=== PATIENT | male | born 1955 | race Caucasian/White ===

== ENCOUNTER 2019-09-22 10:06 | Outpatient (CLI) | payer MEDICARE, SELFPAY ==
--- NOTE | ~2019-09-22 | XR_ITS ---
XR chest 2V 09/22/2019 10:22 Indication: Hypercalcemia. Procedure: 2 view chest Comparison: Comparison to multiple prior studies sequentially, with oldest reviewed study dated 04/27. Findings: There is chronic bibasilar atelectasis/scarring. Heart size normal. The lungs are hyperinfl ated which is consistent with, but not diagnostic of chronic obstructive pulmonary disease. No acute focal pneumonia, edema or effusion. No pneumothorax. Impression: 1: Chronic bibasilar atelectasis/scarring. Reviewed, dictated and finalized at location A. Impression: 1: Chronic bibasilar atelectasis/scarring.
== END 2019-09-22 10:07 | disposition home or self-care (01) ==
LOC: ANHIMG 10:10
PROVIDERS: PCP Family Medicine; Visit Provider Physician Assistant
DX: E83.52 Hypercalcemia (principal); J98.11 Atelectasis
CPT/HCPCS: 71046

== ENCOUNTER → 2020-08-13 01:13 | Outpatient (CLI) | payer MEDICARE, SELFPAY ==
[2020-08-13 19:12] LABS: SARS-CoV-2 RNA PCR Negative
== END ==
PROVIDERS: PCP Family Medicine; Visit Provider Internal Medicine Gastroenterology
DX: Z01.812 Encounter for preprocedural laboratory examination (principal); Z20.828 Contact with and (suspected) exposure to other viral communicable diseases
CPT/HCPCS: C9803; U0003; U0005

== ENCOUNTER 2020-08-17 03:02 | Day surgery (SDC) | payer MEDICARE, SELFPAY ==
[2020-08-03 16:03] VITALS: BMI 26.3
[2020-08-17 11:49] VITALS: BP 129/93; PULSE 83; RESP 18; TEMP 36.6; O2SAT 97
[2020-08-17] MEDS: LACTATED RINGERS 1,000 ML 150 ML IV CONT (12:03)
--- NOTE | 2020-08-17 12:59 | WPDANESEPPF ---
Anes - Initial Pre Proc Eval Procedure: Operation Date: 08/17/20 13:00 Proposed Procedures p Screening Colonoscopy - Jermain Saunders MD Date/Time: 08/17/20 12:59 Surgeon: Jermain Saunders MD Pre Op Diagnosis: neoplasm screening Patient Data Age: 65 Gender: M Height: 6 ft 2 in Weight: 90.4 kg Last Vital Signs Temp 97.8 F 08/17/20 11:49 Pulse 83 08/17/20 11:49 Resp 18 08/17/20 11:49 BP 129/93 H 08/17/20 11:49 Pulse Ox 97 08/17/20 11:49 Allergies Allergy/AdvReac Type Severity Reaction Status Date / Time ampicillin Allergy Severe Hives Verified 08/17/20 11:46 latex Allergy Severe Swelling Verified 08/17/20 11:46 AMOXICILLIN TRIHYDRATE Allergy Severe HIVES Uncoded 08/17/20 11:46 POTASSIUM CLAVULANATE Allergy Severe HIVES Uncoded 08/17/20 11:46 Home Medications Medication Instructions Recorded Confirmed Type aspirin 81 mg tablet,delayed 81 mg PO DAILY 05/15/19 08/03/20 History release levothyroxine 125 mcg tablet 125 mcg PO DAILY #90 tablet 11/13/19 08/03/20 Rx flecainide 100 mg tablet 100 mg PO Q12H #360 tablet 02/08/20 08/03/20 Rx atorvastatin 10 mg tablet 10 mg PO DAILY #90 tablet 05/09/20 08/03/20 Rx gabapentin 100 mg capsule 700 mg PO DAILY #630 cap 06/06/20 08/03/20 Rx melatonin 10 mg PO .qhs PRN 08/03/20 08/03/20 History Patient hx anesthesia problems: none Family hx anesthesia problems: none PMFSH Past Medical History Medical History (Updated 06/01/20 @ 11:57 by VITA Hopkins) Encounter for wellness examination History of pulmonary embolism Shingles Surgical History Surgical History (Updated 06/15/19 @ 14:55 by Shaan Swift MD) History of partial thyroidectomy Intracranial meningioma S/P IVC filter Family History Family History (Updated 12/23/15 @ 23:19 by DOCTOR UNKNOWN) Father Family history of coronary artery disease Mother Family history of malignant neoplasm of breast in first degree relative Sibling Family history of malignant neoplasm of breast in first degree relative Other Family history of cardiovascular disease Family history of malignant neoplasm Social History Social History (Updated 06/20/20 @ 13:09 by Danette Woodard) Smoking status: Never smoker Second hand tobacco smoke exposure: No Alcohol intake: never Substance use: never Substance use type: does not use Living arrangements: with family Gender identity (if verbalized by the patient): Male Spiritual care concerns: No Anes - Eval Final PreProcedure Day of Procedure 08/17/20 12:59 Patient weight: normal Heart: regular rate and rhythm Lungs: clear to auscultation Airway: Mallampati scale class II Neurological: alert and oriented Last oral intake: >/= 8 hours ASA classification: III Emergent: no Anesthetic plan: proceed Anesthesia type and monitoring: general GIVS and standard monitoring Informed Consent: The patient's anesthetic plan and its attendant risks and benefits were discussed with the patient/family/POA. Questions were solicited and answers provided to the satisfaction of the patient/family/POA.
--- NOTE | 2020-08-17 13:02 | PM.HPGS ---
History of Present Illness History of Present Illness Consent: Risks, benefits, and alternatives have been discussed and questions answered. Patient agrees to proceed with procedure. Chief complaint: neoplasm screening Narrative: Jhony James is a 65 year old male with colon polyps 2016 Review of Systems Constitutional: Constitutional: Denies headache(s) and Denies weakness Eyes: Eyes: Denies blurry vision ENT: Reports Normal hearing present, Denies headache(s) and Denies neck pain Cardiovascular: Cardiovascular: Denies chest pain and Denies dyspnea Respiratory: Respiratory: Denies dyspnea Gastrointestinal: Gastrointestinal: Reports no additional gastrointestinal complaints Genitourinary: Genitourinary: Denies dysuria Musculoskeletal: Musculoskeletal: Denies neck pain Integumentary/Breasts: Skin/Breast: Denies dry skin Neurologic: Reports Normal hearing present, Denies headache(s) and Denies weakness Psychiatric: Psychiatric: Denies anxiety Endocrine: Endocrine: Denies change in body appearance Hematologic/Lymphatic: Hematologic/Lymphatic: Denies easy bleeding Allergic/Immunologic: Allergic/Immunologic: Denies urticaria PMF Past Medical History Medical History (Updated 08/17/20 @ 13:02 by Jermain Saunders MD) Adenomatous colon polyp Encounter for wellness examination History of pulmonary embolism Shingles Surgical History Surgical History (Updated 06/15/19 @ 14:55 by Shaan Swift MD) History of partial thyroidectomy Intracranial meningioma S/P IVC filter Family History Family History (Updated 12/23/15 @ 23:19 by DOCTOR UNKNOWN) Father Family history of coronary artery disease Mother Family history of malignant neoplasm of breast in first degree relative Sibling Family history of malignant neoplasm of breast in first degree relative Other Family history of cardiovascular disease Family history of malignant neoplasm Social History Social History (Updated 06/20/20 @ 13:09 by Danette Woodard) Smoking status: Never smoker Second hand tobacco smoke exposure: No Alcohol intake: never Substance use: never Substance use type: does not use Living arrangements: with family Gender identity (if verbalized by the patient): Male Spiritual care concerns: No Meds Home Medications and Allergies Home Medications Medication Instructions Recorded Confirmed Type aspirin 81 mg tablet,delayed 81 mg PO DAILY 05/15/19 08/03/20 History release levothyroxine 125 mcg tablet 125 mcg PO DAILY #90 tablet 11/13/19 08/03/20 Rx flecainide 100 mg tablet 100 mg PO Q12H #360 tablet 02/08/20 08/03/20 Rx atorvastatin 10 mg tablet 10 mg PO DAILY #90 tablet 05/09/20 08/03/20 Rx gabapentin 100 mg capsule 700 mg PO DAILY #630 cap 06/06/20 08/03/20 Rx melatonin 10 mg PO .qhs PRN 08/03/20 08/03/20 History Allergies Allergy/AdvReac Type Severity Reaction Status Date / Time ampicillin Allergy Severe Hives Verified 08/17/20 11:46 latex Allergy Severe Swelling Verified 08/17/20 11:46 AMOXICILLIN TRIHYDRATE Allergy Severe HIVES Uncoded 08/17/20 11:46 POTASSIUM CLAVULANATE Allergy Severe HIVES Uncoded 08/17/20 11:46 Vital Signs Vital Signs - 24 hr 08/17/20 11:49 Temperature 97.8 F Pulse Rate 83 Respiratory Rate 18 Blood Pressure 129/93 H Pulse Oximetry 97 Exam Const: General: comfortable and no acute distress HENMT: General nose exam: Normal nares present Eyes: General: appearance normal, both eyes and all related structures Neck: Neck: no JVD Resp: Auscultation: clear to auscultation bilaterally Cardio: Rate: regular rate Rhythm: regular rhythm GI: Inspection: non-distended GI Palp: Yes Soft to palpation Skin: General skin exam: normal color Neuro: General: gait normal Speech: normal speech Extrem: General: normal to inspection Psych: Mental Status: mental status grossly normal Assessment and Plan Assessment and plan (1) Bessy
[2020-08-17 13:34] VITALS: BP 107/72; PULSE 77; RESP 15; O2SAT 97
[2020-08-17 13:44] VITALS: BP 105/71; PULSE 74; RESP 17; O2SAT 98
[2020-08-17 13:54] VITALS: BP 108/68; PULSE 72; RESP 18; O2SAT 97
== END 2020-08-17 14:08 | disposition home or self-care (01) ==
PROVIDERS: PCP Family Medicine; Visit Provider Internal Medicine Gastroenterology
PROC: 0DJD8ZZ Inspection of Lower Intestinal Tract, Via Natural or Artificial Opening Endoscopic (ICD-10-PCS; CPT 45378; principal; 2020-08-17 13:00)
DX: Z12.11 Encounter for screening for malignant neoplasm of colon (principal); D12.3 Benign neoplasm of transverse colon; K64.8 Other hemorrhoids; Z86.711 Personal history of pulmonary embolism; Z79.82 Long term (current) use of aspirin
CPT/HCPCS: 45385; 88305; C9803; J2001; J2704; J7120; U0003; U0005

== ENCOUNTER 2020-10-31 07:33 | Outpatient (CLI) | payer MEDICARE, SELFPAY ==
--- NOTE | ~2020-10-31 | US_ITS ---
EXAMINATION: US venous doppler LE EXAM DATE: 10/31/2020 08:00 INDICATION: Z86.711 - Personal history of pulmonary embolism. Calf pain 2 weeks ago. TECHNIQUE: Multiple grayscale, color flow and Doppler images of the lower extremity deep venous syste ms bilaterally were obtained and reviewed. Comparison is made to prior examination from 12/17/2011. FINDINGS: Right side: The right common femoral, femoral and profunda veins demonstrate normal color flow, respi ratory variation, augmentation and compressibility. Compressibility, color flow confirmed within the right popliteal, posterior tibial, peroneal, and greater saphenous veins. Left side: The left common femoral, femoral and profunda veins demonstrate normal color flow, respira tory variation, augmentation and compressibility. Compressibility, color flow confirmed within the l eft popliteal, posterior tibial, peroneal, and greater saphenous veins. IMPRESSION: 1. No lower extremity deep venous thrombosis bilaterally. Reviewed, dictated and finalized at location A.
== END 2020-10-31 07:34 | disposition home or self-care (01) ==
PROVIDERS: PCP Family Medicine; Visit Provider Physician Assistant
DX: M79.604 Pain in right leg (principal); R60.0 Localized edema; M79.89 Other specified soft tissue disorders; Z86.711 Personal history of pulmonary embolism
CPT/HCPCS: 93970

== ENCOUNTER → 2020-10-31 08:09 | Outpatient (CLI) | payer MEDICARE, SELFPAY ==
--- NOTE | ~2020-10-31 | XR_ITS ---
EXAMINATION: XR ankle LT 2V DATE: 10/31/2020 09:12 INDICATION: Left ankle pain. TECHNIQUE: 4 views of left ankle were obtained. COMPARISON: None. FINDINGS: Bone alignment is normal. No fracture. There is mild ankle joint osteoarthritis characteriz ed by tiny osteophytes. There is mild talonavicular joint osteoarthritis. IMPRESSION: 1. Mild polyarticular osteoarthritis. Reviewed, dictated and finalized at location A.
--- NOTE | ~2020-10-31 | XR_ITS ---
EXAMINATION: XR foot RT 2V DATE: 10/31/2020 09:12 INDICATION: Right ankle injury TECHNIQUE: Dorsoplantar, two oblique and lateral views of the right foot were obtained. COMPARISON: Right ankle radiographs dated 11/10/2020 FINDINGS: Bone alignment is normal. No fracture. Minimal to mild polyarticular osteoarthritis at the first meta tarsophalangeal and several tarsal metatarsal and interphalangeal joints. Small collection of tiny he terotopic ossicles in the plantar soft tissues of the hindfoot projecting over the expected course of the plantar aponeurosis suggesting sequela of old trauma. Additional small enthesopathic ossicles at the distal Achilles tendon. No right ankle joint effusion. IMPRESSION: 1. Minimal to mild polyarticular osteoarthritis in the right mid and forefoot. No acute osseous abnor mality. 2. Small collection of tiny heterotopic ossicles project over the plantar aponeurosis suggesting sequ chana of old trauma. 2. Tiny likely enthesopathic ossicles the calcaneal insertion of the distal Achilles tendon. Reviewed, dictated and finalized at location A. IMPRESSION: 1. Minimal to mild polyarticular osteoarthritis in the right mid and forefoot. No acute osseous abnormality. 2. Small collection of tiny heterotopic ossicles project over the plantar apone urosis suggesting sequela of old trauma. 2. Tiny likely enthesopathic ossicles the calcaneal insertion of the distal Ach illes tendon.
--- NOTE | ~2020-10-31 | XR_ITS ---
XR ankle RT 2V 10/31/2020 09:13 INDICATION: Right ankle pain after injury PROCEDURE: 4 views right ankle COMPARISON: No prior studies for comparison. FINDINGS: Fracture, dislocation or subluxation is not identified. There is extensive atherosclerosis. The soft tissues appear within normal limits. No foreign bodies are identified. IMPRESSION: 1: NO ACUTE BONE OR JOINT ABNORMALITY IDENTIFIED. Reviewed, dictated and finalized at location B.
--- NOTE | ~2020-10-31 | XR_ITS ---
EXAMINATION: XR foot LT min 3V DATE: 10/31/2020 09:13 INDICATION: Right ankle injury with pain and swelling. TECHNIQUE: Dorsoplantar, two oblique and lateral views of the right foot were obtained. COMPARISON: None. FINDINGS: Bone alignment is normal. No fracture. Minimal to mild polyarticular osteoarthritis at multiple joint s in the mid and forefoot. Multiple small heterotopic ossicles projecting along the expected course o f the plantar aponeurosis which suggests sequela of old trauma. IMPRESSION: 1. Minimal to mild polyarticular osteoarthritis in the left mid and forefoot. 2. Multiple small heterotopic ossicles projecting over the plantar aponeurosis suggesting sequela of old trauma. Reviewed, dictated and finalized at location A.
== END ==
PROVIDERS: Visit Provider Physician Assistant
DX: S99.911A Unspecified injury of right ankle, initial encounter (principal); S99.912A Unspecified injury of left ankle, initial encounter; M19.072 Primary osteoarthritis, left ankle and foot; M19.071 Primary osteoarthritis, right ankle and foot; M61.571 Other ossification of muscle, right ankle and foot
CPT/HCPCS: 73600; 73620; 73630

== ENCOUNTER → 2023-04-01 08:30 | Outpatient (CLI) | payer MEDICARE, SELFPAY ==
--- NOTE | ~2023-04-01 | XR_ITS ---
Right Hand Technique: PA, oblique, and lateral views were obtained. Clinical History: Pain Findings: No acute fracture or dislocation is seen. Osseous alignment is anatomic. Joint spaces are p reserved. Soft tissues are unremarkable. Impression: Unremarkable right hand. Reviewed, dictated and finalized at location M. ING MACHINE ADJUSTER Impression: Unremarkable right hand.
== END ==
PROVIDERS: PCP Specialist; Visit Provider Specialist
DX: M79.644 Pain in right finger(s) (principal)
CPT/HCPCS: 73130

== ENCOUNTER 2024-06-30 10:45 | Outpatient (CLI) | payer MEDICARE, SELFPAY ==
--- OUTSIDE RECORDS SUMMARY | 2024-06-30 11:22 | XMS_ITS | Encounter Summary ---
Author Organization [facility] Health Address [address] [place] [address] Care Team Providers Care Power Saw Operator Name Role Phone Shaan Swift MD Primary Care Provider [phone] Encounter Details Date Type Department Care Team (Late st Contact Info) Description 11/16/2019 Lab Requisition [facility] [address] [facility] [facility] [place] [id number] Bhumika Harris MD [address] [facility] [address] [place] [address] Social History Tobacco Use Types Packs/Day Years Used Date Smoking Tobacco: Never Assessed Sex and Gender Information Value Date Recorded Sex Assigned at Not on file Gender Identity Not on file Sexual Orientation Not on file documented as of this encounter Plan of Treatment Not on file documented as of this encounter Procedures Procedure Name Priority Date/Time Associated Diagnosis Comments DERMATOPATHOLOGY Routine 11/12/2019 12:0 0 AM CDT documented in this encounter Results * DERMATOPATHOLOGY (11/12/2019 12:00 AM CDT) Case Report Dermatopathology Report ? Case: [id number] ? Authorizing Provider: ??Bhumika Harris MD ? Collected: ? 11/12/2019 12:00 AM ? Ordering Location: ? [facility] Derm[facility] Lab ?Received: ?11/16/2019 11:52 AM ? Pathologist: ? Mary Lamas MD ? Specimen: ?Skin, right neck ? 0 6:07 PM CDT DERMATOPATHOLOGY LABORATORY Final Diagnosis Specimen A. SKIN, right neck: BASAL CELL CARCINOMA, NODULAR TYPE (C44.41) 0 6:07 PM CDT DERMATOPATHOLOGY LABORATORY Clinical History R/O BCC, irritated. 0 6:07 PM CDT DERMATOPATHOLOGY LABORATORY Gross Description Specimen A: Received is one formalin filled container labeled with the patient's name and designated right neck. The specimen consists of a shave measuring [id number]. Jar 0. 0 6:07 PM CDT DERMATOPATHOLOGY LABORATORY Microscopic Description Specimen A. SKIN, right neck: Within the dermis there are aggregates of basaloid cells with a high nuclear to cytoplasmic ratio and peripheral palisading. 0 6:07 PM CDT DERMATOPATHOLOGY LABORATORY Disclaimer An external and internal positive and negative controls are appropriate for the histochemical, immunohistochemical and immunofluorescence stain(s) in this case (if any), except where stated explicitly. The performance characteristics of the stain(s) cited in this report were developed and its performance characteristic determined by the Dermatopathology Laboratory at [facility], directed by Dr. Tracy Galindo. These tests need not be, and therefore are not, approved by the [place] Food and Drug Administration. The tests are used for clinical purposes. Billing Codes Specimen Charges Stain Charges 77001 1 0 6:07 PM CDT DERMATOPATHOLOGY LABORATORY Embedded Images 0 6:07 PM CDT DERMATOPATHOLOGY LABORATORY Pathology/Cytolog y TISSUE SPECIMEN FROM SKIN / Unknown 11/12/2019 11/16/2019 11:52 AM CDT Bhumika Harris MD LAB - PATHOLOGY/CYT OLOGY ORDERABLES DERMATOPATHOLOGY LABORATORY [facility] - Department of Dermatology Drier Attendant [facility]/[address] [phone] documented in this encounter Visit Diagnoses Not on filedocumented in this encounter Care Teams Power Saw Operator Relationship Specialty Start Date End Date Shaan Swift MD [address] [place] [address] PCP - General 08/22/10 documented as of this encounter
--- OUTSIDE RECORDS SUMMARY | 2024-06-30 11:22 | XMS_ITS | Encounter Summary ---
Author Organization [facility] Healthcare Address [address] [place] [address] Care Team Providers Care Assistant Dean Of Students Name Role Phone Shaan Swift MD Primary Care Provider Silvina Duron MD Unavailable Singh Mccall MD Unavailable [phone] Encounter Details Date Type Department Care Team (Late st Contact Info) Description 02/29/2020 Telephone [facility] ([facility]) [address] [place] [id number] [address], [place] Social History Tobacco Use Types Packs/Day Years Used Date Smoking Tobacco: Never Smokeless Tobacco: Never Alcohol Use Standard Drinks/Week Comments Yes 1 (1 standard drink = 0.6 oz pur e alcohol) Sex and Gender Information Value Date Recorded Sex Assigned at Not on file Legal Sex Male 1:58 AM CLIENT SUCCESS DIRECTOR Gender Identity Not on file Sexual Orientation Not on file documented as of this encounter Plan of Treatment Not on file documented as of this encounter Visit Diagnoses Not on filedocumented in this encounter Care Teams Assistant Dean Of Students Relationship Specialty Start Date End Date Shaan Swift MD [address] [facility] [address] [place] [address] PCP - General 10/05/16 Sivlina Duron MD [address] [facility] [address] [place] [address] Radiation Oncologist Radiation Oncology 04/07/19 Singh Mccall MD [address] [place] [address] Surgeon Neurosurgery 04/07/19 documented as of this encounter
--- OUTSIDE RECORDS SUMMARY | 2024-06-30 11:22 | XMS_ITS | Referral Summary ---
Author Organization [facility] Address [address] [place] [address] Care Team Providers Care Welding Machine Assembler Name Role Phone Shaan Swift MD Primary Care Provider Silvina Duron MD Unavailable Singh Mccall MD Unavailable [phone] Encounters Date Type Department Care Team Description 06/19/2024 Telephone [facility] ([facility]) - [facility] ENT [address] [address] [place] [address] [place] [address] Sada Arroyo, appt 06/03/[address] [facility] Cardiology [address] [place] [address] Singh Mcdonald MD Med Refill from Last 3 Months Allergies Active Allergy Reactions Criticality Noted Date Comments Amoxicillin Latex Medications atorvastatin (LIPITOR) 10 mg tablet take 1 Tablet by oral route every day At bedtime 0 0 6 Active aspirin 81 mg enteric coated tablet Take 1 tablet (81 mg total) by mouth nightly Active Levo-T 112 mcg tablet Take 1 tablet (112 mcg total) by mouth rn compliance before breakfast 3 Active gabapentin (NEURONTIN) 300 mg capsule TAKE 1 CAPSULE BY MOUTH 3 TIMES DAILY 300 capsule 2 4 Active flecainide (Tambocor) 100 mg tablet Take 1 tablet (100 mg total) by mouth 2 (two) times a day 180 tablet 5 Active flecainide (TAMBOCOR) 100 mg tablet take 1 Tablet (100MG) by oral route every 12 hours 180 3 2 06/03/19 25 Discontinu ed(Reorder ) Active Problems Problem Noted Date Diagnosed Date 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 He is not known to have vascular disease. Continue Lipitor 10 mg daily. Cerebellopontine angle syndrome 12/05/2016 Lesion of cervix 12/05/2016 Paroxysmal atrial fibrillation (CMS/HCC) 017 Assessment & Plan (03/16/2021 7:12 PM CDT): Quiescent on flecainide 100 mg b.i.d. which he should continue. EKG today looks good. He is not anticoagulated because of his meningioma. Additionally, he has a low cardioembolic risk. Assessment & Plan (01/05/2020 2:46 PM CDT): Quiescent on low-dose flecainide without side effects. He has a low chads Vasc score and is therefore not systemically anticoagulated. Assessment & Plan (12/22/2018 9:44 AM CDT): No recognized recurrence. Continue low-dose Tambocor. If atrial fibrillation recurs, he should go to an emergency room as he is not anticoagulated. With prompt anticoagulation, it would be possible to get him back in sinus rhythm. Assessment & Plan (12/16/2017 2:49 PM CDT): No symptomatic recurrence on flecainide. He has a chads Vasc score of 0, and is therefore not anticoagulated. Assessment & Plan (10/29/2016 11:36 AM CDT): No symptomatic recurrence of atrial fibrillation on flecainide. No changes were made in his medications. He is not anticoagulated because of a low thromboembolic risk. Additionally, his meningioma would represent a relative contraindication to anticoagulation. 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 Monthly or less 03/02/2022 Q2: How many drinks containi ng alcohol do you have on a typical day when you are drinking? 1 or 2 03/02/2022 Q3: How often do you have si x or more drinks on one occasion? Never 03/02/2022 Sex and Gender Information Value Date Recorded Sex Assigned at Not on file Legal Sex Male 1:58 AM [employer] Gender Identity Not on file Sexual Orientation Not on file Last Filed Vital Signs Vital Sign Reading Time Taken Comments Blood Pressure 108/82 03/17/2024 12:43 PM CDT Pulse 77 03/17/2024 12:43 PM CDT Temperature 37.2 ??C (98.9 ??F) 01/05/2020 1:25 PM CD T Respiratory Rate - - Oxygen Saturation 93% 03/17/2024 12:43 PM CDT Inhaled Oxygen Concentration - - Weight 91.7 kg (202 lb 1.6 oz) 03/17/2024 12:43 PM CDT Height 188 cm (6' 2 ) 03/17/2024 12:43 PM CDT Body Mass Index 25.95 03/17/2024 12:43 PM CDT Plan of Treatment Not on file Medical Devices Implanted Type Area Space Studies Faculty Member Device Identifier Shelf Expiration Date Model / Serial / Lot Ivc Filter Vena [employer] Insurance MEDICARE SOLUTIONS MEDICARE SOLUTIONS [facility] MEDICARE GOLD Care Teams Welding Machine Assembler Relationship Specialty Start Date End Date Shaan Swift MD [address] [place] [address] PCP - General 10/05/16 Silvina Duron MD [address] [place] [address] Radiation Oncologist Radiation Oncology 04/07/19 Singh Mccall MD [address] [employer] [address] [place] [address] Surgeon Neurosurgery 04/07/19
--- OUTSIDE RECORDS SUMMARY | 2024-06-30 11:22 | XMS_ITS | Clinical Summary ---
Author Organization [facility] Address [address] [place] [address] Care Team Providers Care Lacemaker Name Role Phone Shaan Swift MD Primary Care Provider Silvina Duron MD Unavailable Singh Mccall MD Unavailable [phone] Allergies Active Allergy Reactions Criticality Noted Date Comments Amoxicillin Latex Medications atorvastatin (LIPITOR) 10 mg tablet take 1 Tablet by oral route every day At bedtime 0 0 6 Active aspirin 81 mg enteric coated tablet Take 1 tablet (81 mg total) by mouth nightly Active Levo-T 112 mcg tablet Take 1 tablet (112 mcg total) by mouth counterperson before breakfast 3 Active gabapentin (NEURONTIN) 300 [...] 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 Vocal cord palsy 06/27/2011 Encounters Date Type Department Care Team Description 06/19/2024 Telephone [facility] Advanced Medicine ([facility]) - [facility] ENT [address] [place] [address] [place] [address] Sada Arroyo MS appt 06/03/2024 Telephone [facility] Cardiology [address] [place] [address] Singh Mcdonald MD Med Refill from Last 3 Months Immunizations Name Administration Dates Next Due Influenza, Quadrivalent, Hig h Dose, Preservative Free, Intrr 02/18/2020 Tdap 01/02/2013 ZOSTER LIVE 05/10/2014 ZOSTER Recombinant 03/23/2020,01/22/2020 Surgical History Surgery Date Site/Laterality Comments OTHER SURGICAL HISTORY 05/27/2011 - 05/26/2012 removal of meningioma CRANIOTOMY 05/27/2011 - 05/26/2012 ENDOSCOPIC EXTRALARYNGEAL VOCAL CORD LATERALIZATION W/ MLB vocal cord transplant THYROIDECTOMY BRAIN SURGERY 2011 Medical History Medical History Date Comments Atrial fibrillation (CMS/HCC) (HCC) Asthma Childhood Thyroid disease Thyroidectomy, 1970 Kidney stone 2016 Family History Medical History Relation Name Comments No Known Problems Brother Coronary artery disease Father Gene Aranza nary Artery Bypass Graft; Heart disease Father Gene Cancer Mother Shaylee Cancer Sister Ashley Relation Name Status Comments Brother Father Gene Alive Mother Shaylee Sister Ashley Social History Tobacco Use Types Packs/Day Years [...] on file Legal Sex Male 1:58 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 Gender Identity Not on file Sexual Orientation Not on file Obstetrics History Last Filed Vital Signs Vital Sign Reading [...] 03/17/2024 12:43 PM CDT Plan of Treatment Health Maintenance Due Date Last Done Comments Colon Cancer Screening-Colonoscopy 1953 Depression Screening 1953 Fall Risk Assessment 1953 Hepatitis C Screening 1953 Hepatitis B Screening 1971 Pneumococcal vaccine 65+ (1 of 1 - PCV) 2018 Well Visit 65+ 2018 DTaP/Tdap/Td Vaccine (2 - Td or Tdap) 01/02/202301/2013 Influenza Vaccine (#1) 2024 02/18/2020 Zoster Vaccine Completed 03/23/2020, 12/26, 05/10/2014 Medical Devices Implanted Type Area Inside Outside Sales Representative Device Identifier Shelf Expiration Date Model / Serial / Lot Ivc Filter Vena Cava Insurance MEDICARE SOLUTIONS MEDICARE SOLUTIONS [facility] [place] [address] Care Teams Lacemaker Relationship Specialty Start Date End Date Shaan Swift MD [address] [place] [address] PCP - General 10/05/16 Silvina Duron MD [address] [place] [address] Radiation Oncologist Radiation Oncology 04/07/19 Singh Mccall MD [address] [place] [address] Surgeon Neurosurgery 04/07/19
--- OUTSIDE RECORDS SUMMARY | 2024-06-30 11:22 | XMS_ITS | Clinical Summary ---
Author Organization [facility] Address [address] [place] [address] Care Team Providers Care Housekeeping Supervisor Name Role Phone Shaan Swift MD Primary Care Provider [phone] Source Comments [facility],non-owned Affiliates and Associated Physician Practices is amultiple site organization consisting of ambulatory clinics and hospital sitesin [place], [place], [place] and [place]. This disclosure is being madepursuant to the Care Everywhere program and may not contain all information available regarding this patient. Last updated 18.[facility] Social History Tobacco Use Types Packs/Day Years Used Date Smoking Tobacco: Never Assessed Sex and Gender Information Value Date Recorded Sex Assigned at Not on file Gender Identity Not on file Sexual Orientation Not on file Plan of Treatment Health Maintenance Due Date Last Done Comments COLOGUARD (AGES 45-75) - COL ON CA SCREENING 1953 COLON MONITORING 1953 COLONOSCOPY - COLON CA SCREENING 1953 CT COLONOGRAPHY - COLON CA SCREENING 1953 Colorectal Cancer Screening 1953 FIT - COLON CA SCREENING 1953 FLEX SIG - COLON CA SCREENING 1953 LIPID TESTING 1953 HEPATITIS C SCREENING 05/27/1971 DTAP/TDAP/TD VACCINES (1 - Tdap) 1972 PNEUMOCOCCAL VACCINE 50+ (1 of 1 - PCV) 2003 ZOSTER VACCINE (1 of 2) 2003 COVID-19 VACCINE ( - 2023-2 5 season) 2024 INFLUENZA VACCINE (#1) 2024 DEPRESSION SCREENING 05/27/2024 MEDICARE AWV ? CALENDAR YEAR 2024 Respiratory Syncytial Virus (RSV) Vaccine Pt: or over 60 yrs (1 - 1-dose 75+ series) 2028 HEPATITIS B VACCINE Aged Out No longe r eligible based on patient's age to complete this topic HIB VACCINE Aged Out No longer eligi ble based on patient's age to complete this topic HPV VACCINE Aged Out No longer eligi ble based on patient's age to complete this topic MENINGOCOCCAL (Group B) VACCINE Aged Out No longer eligible based on patient's age to complete this topic MENINGOCOCCAL VACCINE Aged Out No lilia prasanna eligible based on patient's age to complete this topic Care Teams Housekeeping Supervisor Relationship Specialty Start Date End Date Shaan Swift MD [address] [place] [address] PCP - General 08/22/10
--- OUTSIDE RECORDS SUMMARY | 2024-06-30 11:22 | XMS_ITS | Patient Health Summary ---
Author Organization [facility] Address [address] [facility] [place] [address] Care Team Providers Care Rn Provider Relations Name Role Phone Shaan Swift MD Primary Care Provider [phone] Note from [facility],non-owned Affiliates and Associated Physician Practices is amultiple site organization consisting of ambulatory clinics and hospital sitesin [place], [place], [place] and [place]. This disclosure is being madepursuant to the Care Everywhere program and may not contain all information available regarding this patient. Last updated 18.[facility] Social History Tobacco Use Types Packs/Day Years Used Date Smoking Tobacco: Never Assessed Sex and Gender Information Value Date Recorded Sex Assigned at Not on file Gender Identity Not on file Sexual Orientation Not on file Procedures * DERMATOPATHOLOGY(Performed 03/06/2021) * DERMATOPATHOLOGY(Performed 12/26/2020) * DERMATOPATHOLOGY(Performed 12/16/2019) * DERMATOPATHOLOGY(Performed 11/12/2019) * DERMATOPATHOLOGY(Performed 11/19/2017) * DERMATOPATHOLOGY(Performed 08/15/2017) * DERMATOPATHOLOGY(Performed 09/07/2014) * DERMATOPATHOLOGY(Performed 08/24/2014) * DERMATOPATHOLOGY(Performed 07/02/2014) * DERMATOPATHOLOGY(Performed 02/07/2011) * DERMATOPATHOLOGY(Performed 10/10/2010) * DERMATOPATHOLOGY(Performed 09/01/2010) Results * DERMATOPATHOLOGY (03/06/2021 12:00 AM CDT) Only the most recent of12 resultswithin the time period is included. Case Report Dermatopathology Report ? Case: [id number] ? Authorizing Provider: ??Henrietta Dozier MD ? Collected: ? 03/06/2021 12:00 AM ? Ordering Location: ? [facility] DermPath Lab ?Received: ?03/07/2021 09:37 AM ? Pathologist: ? Jossie Silva, ? MD ? Specimen: ?Skin, right forearm ? 1 6:15 PM CDT DERMATOPATHOLOGY LABORATORY Final Diagnosis Specimen A. 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 The specimen consists of a non-oriented ellipse of skin measuring 8x7x3 mm, bisected. 6:15 PM CDT DERMATOPATHOLOGY LABORATORY Microscopic Description Specimen A. SKIN, right forearm: In the dermis, there are dilated vascular spaces surrounded by widely spaced endothelial cells. Within the intravascular space there are papillary formations lined by endothelial cells and organizing thrombi. COMMENT: Features of intravascular papillary endothelial hyperplasia ( Po's tumor ) are seen in the lesion. This is recognized as a benign and reactive proliferation of endothelial cells with papillary formations. See reference below. Reference: Chencho Heard P, Arian Patino, Elgin Patino. Intravascular Cutaneous Disorders. A Clinicopathologic Review. Am J Dermatopathol. 2020Jun 27;43(2):119-136. PMID: [id number]. 6:15 PM CDT DERMATOPATHOLOGY LABORATORY Disclaimer An external and internal positive and negative controls are appropriate for the histochemical, immunohistochemical and immunofluorescence stain(s) in this case (if any), except where stated explicitly. The performance characteristics of the stain(s) cited in this report were developed and its performance characteristic determined by the Dermatopathology Laboratory at [facility], directed by Dr. Tracy Galindo. These tests need not be, and therefore are not, approved by the [place] Food and Drug Administration. The tests are used for clinical purposes. Billing Codes Specimen Charges Stain Charges 88792 1 6:15 PM CDT DERMATOPATHOLOGY LABORATORY Embedded Images 6:15 PM CDT DERMATOPATHOLOGY LABORATORY Pathology/Cytolog y TISSUE SPECIMEN FROM SKIN / Unknown 03/06/2021 03/07/2021 9:37 AM CDT Henrietta Dozier MD LAB - PATHOLOGY/CYTO LOGY ORDERABLES DERMATOPATHOLOGY LABORATORY [facility] - Department of Dermatology [address] [phone] Care Teams Rn Provider Relations Relationship Specialty Start Date End Date Shaan Swift MD [address] [place] [address] PCP - General 08/22/10
--- OUTSIDE RECORDS SUMMARY | 2024-06-30 11:22 | XMS_ITS | Encounter Summary ---
Author Organization [facility] Address [address] [place] [address] Care Team Providers Care Combine Inspector Name Role Phone Shaan Swift MD Primary Care Provider [phone] Encounter Details Date Type Department Care Team (Late st Contact Info) Description 12/17/2019 Lab Requisition [facility] D[facility] [address] [place] [phone] Bhumika Harris MD [address] [facility] [address] [place] [address] Social History Tobacco Use Types Packs/Day Years Used Date Smoking Tobacco: Never Assessed Sex and Gender Information Value Date Recorded Sex Assigned at Not on file Gender Identity Not on file Sexual Orientation Not on file documented as of this encounter Plan of Treatment Not on file documented as of this encounter Procedures Procedure Name Priority Date/Time Associated Diagnosis Comments DERMATOPATHOLOGY Routine 12/16/2019 12:0 0 AM CDT documented in this encounter Results * DERMATOPATHOLOGY (12/16/2019 12:00 AM CDT) Case Report Dermatopathology Report ? Case: [id number] ? Authorizing Provider: ??Bhumika Harris MD ? Collected: ? 12/16/2019 12:00 AM ? Ordering Location: ? [facility] DermPath Lab ?Received: ?12/17/2019 06:55 AM ? Pathologist: ? Adithya Galindo MD ? Specimen: ?Skin, right neck ? 0 6:00 PM CDT DERMATOPATHOLOGY LABORATORY Final Diagnosis Specimen A. SKIN, right neck: DERMAL SCAR RESIDUAL BASAL CELL CARCINOMA NOT IDENTIFIED (L90.5) 0 6:00 PM T DERMATOPATHOLOGY LABORATORY Clinical History R/O BCC, biopsy proven. Previous Bx: [id number]. 0 6:00 PM CDT DERMATOPATHOLOGY LABORATORY Gross Description Specimen A: Received is one formalin filled container labeled with the patient's name and designated right neck. The specimen consists of a non-oriented ellipse of skin measuring [id number]. The epidermal surface consists of a centrally located 5x3mm previous biopsy site. The margin is inked green. The 12 o'clock and 6 o'clock tips are submitted in cassette 1. The remainder of the ellipse is serially sectioned and submitted in cassettes 2-3. Jar 0. 0 6:00 PM CDT DERMATOPATHOLOGY LABORATORY Microscopic Description Specimen A. SKIN, right neck: There are fibroblasts and collagen bundles oriented parallel to the skin surface. There are elongated blood vessels, some of which are oriented perpendicular to the skin surface. No basal cell carcinoma is identified. 0 6:00 PM CDT DERMATOPATHOLOGY LABORATORY Disclaimer An external and internal positive and negative controls are appropriate for the histochemical, immunohistochemical and immunofluorescence stain(s) in this case (if any), except where stated explicitly. The performance characteristics of the stain(s) cited in this report were developed and its performance characteristic determined by the Dermatopathology Laboratory at [facility], directed by Dr. Tracy Galindo. These tests need not be, and therefore are not, approved by the [place] Food and Drug Administration. The tests are used for clinical purposes. Billing Codes Specimen Charges Stain Charges 24896 1 0 6:00 PM CDT DERMATOPATHOLOGY LABORATORY Embedded Images 0 6:00 PM CDT DERMATOPATHOLOGY LABORATORY Pathology/Cytolog y TISSUE SPECIMEN FROM SKIN / Unknown 12/16/2019 12/17/2019 6:55 AM CDT Bhumika Harris MD LAB - PATHOLOGY/CYT OLOGY ORDERABLES Performing Organization Address City/State/[facility] Co de Phone Number DERMATOPATHOLOGY LABORATORY [facility] - Department of Dermatology [facility]/[address] [phone] documented in this encounter Visit Diagnoses Not on filedocumented in this encounter Care Teams Combine Inspector Relationship Specialty Start Date End Date Shaan Swift MD [address] [place] [address] PCP - General 08/22/10 documented as of this encounter
--- OUTSIDE RECORDS SUMMARY | 2024-06-30 11:22 | XMS_ITS | Referral Summary ---
Author Organization [facility] Address [address] [place] [address] Care Team Providers Care Md Psychiatry Name Role Phone Shaan Swift MD Primary Care Provider [phone] Source Comments [facility],non-owned Affiliates and Associated Physician Practices is amultiple site organization consisting of ambulatory clinics and hospital sitesin [place], [place], [place] and [place]. This disclosure is being madepursuant to the Care Everywhere program and may not contain all information available regarding this patient. Last updated 18.[facility] Social History Tobacco Use Types Packs/Day Years Used Date Smoking Tobacco: Never Assessed Sex and Gender Information Value Date Recorded Sex Assigned at Not on file Gender Identity Not on file Sexual Orientation Not on file Plan of Treatment Not on file Care Teams Md Psychiatry Relationship Specialty Start Date End Date Shaan Swift MD [address] [place] [address] PCP - General 08/22/10
[2024-06-30 11:45] LABS: Influenza A QL RT-PCR Negative (Negative); Influenza B QL RT-PCR Negative (Negative); RSV RNA, RT-PCR Positive (Negative); SARS-CoV-2 RNA PCR Negative (Negative)
== END 2024-06-30 10:46 | disposition home or self-care (01) ==
PROVIDERS: PCP Family Medicine; Visit Provider Student in an Organized Health Care Education/Training Program
DX: R68.83 Chills (without fever) (principal); R05.9 Cough, unspecified
CPT/HCPCS: 87637